=== PATIENT | female | born 1990 | race Caucasian/White ===

== ENCOUNTER 2021-03-08 02:06 | Emergency (ER) | payer MEDICAID, OTHER ==
[~2021-03-08] VITALS: Ht 167.6 cm; Wt 86.4 kg
[~2021-03-08 02:06] MED LIST: BENZ1TAB10 PO; CLON-595 PO; FLUO-191 PO; ZOLP10TA8 PO
[2021-03-08 02:43] VITALS: BP 142/92
[2021-03-08 03:20] LABS: COVID AG,FIA SOURCE NASOPHARYNGEAL
[2021-03-08 03:21] LABS: BASOPHILS % (AUTO) 0.8 % (0.0-2.0); EOSINOPHILS % (AUTO) 1.2 % (1.0-6.0); HEMATOCRIT 37.2 % (36-46); HEMOGLOBIN 12.1 g/dL (12.0-16.0); LYMPHOCYTES # (AUTO) 3.1 K/uL (1.0-4.8); LYMPHOCYTES % (AUTO) 22.3 % (22.0-44.0); MEAN CORPUSCULAR HEMOGLOBIN 28.5 pg (26.0-34.0); MEAN CORPUSCULAR HGB CONC 32.5 G/dL (31.0-37.0); MEAN CORPUSCULAR VOLUME 88 fL (80-100); MONOCYTES # (AUTO) 0.6 K/uL (0.1-1.0); MONOCYTES % (AUTO) 4.6 % (2.0-9.0); NEUTROPHILS # (AUTO) 9.8 K/uL (1.8-7.7); NEUTROPHILS % (AUTO) 71.1 % (40.0-70.0); PLATELET COUNT (AUTO) 410 K/uL (150-450); RED BLOOD CELL COUNT(AUTO) 4.24 MIL/uL (4.00-5.20); RED CELL DISTRIBUTION WIDTH 13.2 % (11.5-14.5)
[2021-03-08 03:32] LABS: CALCIUM, TOTAL 9.1 mg/dL (8.8-10.5); CARBON DIOXIDE 28 mmol/L (22-29); CHLORIDE 100 mmol/L (98-107); CREATININE 0.77 mg/dL (0.60-1.30); GLOMERULAR FILTR. RATE CALC > 60 mL/min (>60); GLUCOSE,RANDOM 151 mg/dL (70-110); UREA NITROGEN, BLOOD 8 mg/dL (7-18)
[2021-03-08 03:40] LABS: SALICYLATE 0.3 mg/dL (2.8-20.0)
[2021-03-08 03:41] LABS: ALANINE AMINOTRANSFERASE 90 U/L (12-78); ALBUMIN 3.5 g/dL (3.4-5.0); ALKALINE PHOSPHATASE 129 U/L (46-116); ANION GAP 8 mmol/L (8-16); ASPARTATE AMINOTRANSFERASE 39 U/L (15-37); BILIRUBIN,TOTAL 0.5 mg/dL (0.1-1.0); HCG,QUANTITATIVE < 1 mIU/mL (0-6); POTASSIUM 3.7 mmol/L (3.5-5.1); SODIUM SERUM 136 mmol/L (136-145); TOTAL PROTEIN, SERUM 8.5 g/dL (6.4-8.2)
[2021-03-08 03:42] LABS: ACETAMINOPHEN < 2 mcg/mL (10-30)
[2021-03-08] MEDS ORDERED: PALI1.5T7 PO (05:49)
[2021-03-08] MEDS ORDERED: TRAZ-252 PO (05:50)
[2021-03-08] MEDS ORDERED: PALIPERIDONE 1.5 MG ER TABLET PO ONE (06:15)
== END 2021-03-08 11:00 ==
LOC: EMS 02:10
DX: F25.9 Schizoaffective disorder, unspecified (principal); F31.9 Bipolar disorder, unspecified; Z20.822 Contact with and (suspected) exposure to COVID-19
CPT/HCPCS: 36415; 80053; 84702; 85025; 87426; 99285; G0480; G0481